=== PATIENT | male | born 1955 ===

== ENCOUNTER 2022-04-29 07:12 | Day surgery (SDC) | payer OTHER ==
[~2022-04-29 07:12] MED LIST: ATORVASTATIN CA20 MG PO; LOSARTAN-HCTZ1 EAC2 PO; TAMS0.4C PO
[2022-04-29] MEDS ORDERED: NEURONTIN300 MG PO (10:05)
[2022-04-29] MEDS ORDERED: TYLENOL ARTHRI650 MG PO (10:05)
[2022-04-29] MEDS ORDERED: MIRALAX17 GM PO (10:05)
[2022-04-29] MEDS ORDERED: ULTRAM50 MG PO (10:05)
== END 2022-04-29 17:10 | disposition home or self-care (01) ==
LOC: CIR.AMB 07:12
PROVIDERS: ATTEND Surgery
DX: K40.20 Bilateral inguinal hernia, without obstruction or gangrene, not specified as recurrent (principal); I10 Essential (primary) hypertension; Z87.891 Personal history of nicotine dependence; Z20.822 Contact with and (suspected) exposure to COVID-19
CPT/HCPCS: 49650; C1781